=== PATIENT | male | born 1955 | race Caucasian/White ===

== ENCOUNTER 2024-11-23 07:02 | Day surgery (SDC) | payer MEDICARE, OTHER ==
[~2024-11-23 07:02] MED LIST: Sodium Chloride 0.9% 10 ML Syringe FLUSH PRN
[2024-11-23] MEDS ORDERED: Propofol 200 MG/20 ML SDV IV ONE (07:03)
[2024-11-23] MEDS: Sodium Chloride 0.9% 1,000 ML IV SCH (07:40)
[2024-11-23] MEDS ORDERED: Midazolam 1 MG/ML 2 ML SDV ONE (07:41)
[2024-11-23] MEDS ORDERED: Propofol 200 MG/20 ML SDV ONE ×2 (07:41→08:44)
[2024-11-23] MEDS ORDERED: Glycopyrrolate 0.2 MG/ML SDV ONE (07:41)
[2024-11-23] MEDS ORDERED: Lactated Ringers 1,000 ML ONE (08:44)
== END 2024-11-23 10:52 | disposition home or self-care (01) ==
LOC: KA.SDS 07:02
PROVIDERS: ATTEND Family Medicine
DX: Z12.11 Encounter for screening for malignant neoplasm of colon (principal); D12.4 Benign neoplasm of descending colon; D12.5 Benign neoplasm of sigmoid colon; K22.70 Barrett's esophagus without dysplasia; K29.50 Unspecified chronic gastritis without bleeding; K44.9 Diaphragmatic hernia without obstruction or gangrene; K64.4 Residual hemorrhoidal skin tags; K57.30 Diverticulosis of large intestine without perforation or abscess without bleeding; K64.8 Other hemorrhoids; I12.9 Hypertensive chronic kidney disease with stage 1 through stage 4 chronic kidney disease, or unspecified chronic kidney disease; E11.22 Type 2 diabetes mellitus with diabetic chronic kidney disease; N18.31 Chronic kidney disease, stage 3a; E78.5 Hyperlipidemia, unspecified; E66.9 Obesity, unspecified; E03.9 Hypothyroidism, unspecified; I25.10 Atherosclerotic heart disease of native coronary artery without angina pectoris; Z79.4 Long term (current) use of insulin; Z95.5 Presence of coronary angioplasty implant and graft; Z68.33 Body mass index [BMI] 33.0-33.9, adult
CPT/HCPCS: 00813; 82947; J1596; J2250; J2704; J7030